=== PATIENT | female | born 1950 | race Caucasian/White ===

== ENCOUNTER → 2016-08-10 | Outpatient (CLI) | payer MEDICARE, BC ==
--- NOTE | 2016-09-14 10:54 | EM ---
DATE OF SERVICE: AGE: 66Y SEX: F INDICATIONS: EVENT MONITOR The patient was monitored between the period of July until September 08, 2016. The baseline rhythm appeared to be a sinus mechanism. The patient had multiple episodes of paroxysmal supraventricular tachycardia noted. Besides that and in terms of ventricular ectopy, the patient had multiple episodes of PVCs and couplets. Beside that, there is no evidence of any sinus pause or sinus arrest seen. CONCLUSION: 1. The patient was monitored for 3 weeks. 2. Sinus rhythm as a baseline mechanism. 3. Multiple episodes of supraventricular tachycardia noted.
== END | disposition home or self-care (01) ==
LOC: RADECHMAIN 12:57
PROVIDERS: ATTEND Family Medicine
DX: I49.3 Ventricular premature depolarization (principal); I47.1 Supraventricular tachycardia
CPT/HCPCS: 93270; 93271

== ENCOUNTER → 2016-09-12 | Outpatient (CLI) | payer MEDICARE, BC ==
--- NOTE | 2016-09-13 10:12 | ECHOF ---
Referral Reason:R00.2 Palpitations MEASUREMENTS -------- HEIGHT: 160.0 cm WEIGHT: 83.0 kg BP: RVIDd: 2.9 cm (< 3.3) IVSd: 1.1 cm (0.6 - 1.1) LVIDd: 3.8 cm (3.9 - 5.3) LVPWd: 1.1 cm (0.6 - 1.1) IVSs: 1.3 cm LVIDs: 3.3 cm LVPWs: 1.2 cm LA Diam: 3.0 cm (2.7 - 3.8) LAESV Index (A-L): 15.56 ml/m Ao Diam: 2.6 cm (2.0 - 3.7) AV Cusp: 1.9 cm (1.5 - 2.6) LA Diam: 3.0 cm (2.7 - 3.8) MV EXCURSION: 15.944 mm (> 18.000) MV EF SLOPE: 49 mm/s (70 - 150) EPSS: 0.7 cm MV E Tomas: 0.57 m/s MV DecT: 268 ms MV A Tomas: 0.76 m/s MV E/A Ratio: 0.76 RAP: 5.00 mmHg RVSP: 19.70 mmHg FINDINGS -------- Sinus rhythm. This was a technically good study. There is borderline concentric left ventricular hypertrophy. Overall left ventricular systolic function is low-normal with, an EF between 50 - 55 %. The right ventricle is normal in size. Normal LA size by volume 22+/-6 ml/m2. The right atrial size is normal. There is mild aortic valve sclerosis. There is no evidence of aortic regurgitation. Mild mitral annular calcification present. Mild mitral regurgitation is present. Mild tricuspid regurgitation present. There is no evidence of pulmonary hypertension. The right ventricular systolic pressure, as measured by Doppler, is 19.70mmHg. There is no pulmonic regurgitation present. The aortic root size is normal. There is no pericardial effusion. CONCLUSIONS -------- 1. There is borderline concentric left ventricular hypertrophy. 2. Overall left ventricular systolic function is low-normal with, an EF between 50 - 55 %. 3. There is mild aortic valve sclerosis. 4. Mild mitral annular calcification present. 5. Mild mitral regurgitation is present. 6. Mild tricuspid regurgitation present. 7. There is no evidence of pulmonary hypertension. 8. The right ventricular systolic pressure, as measured by Doppler, is 19.70mmHg. LICENSING ANALYST: Nelsy Mera RDCS
== END | disposition home or self-care (01) ==
LOC: RADECHMAIN 14:37
PROVIDERS: ATTEND Internal Medicine Cardiovascular Disease
DX: I07.1 Rheumatic tricuspid insufficiency (principal); I34.0 Nonrheumatic mitral (valve) insufficiency; I35.8 Other nonrheumatic aortic valve disorders
CPT/HCPCS: 93306

== ENCOUNTER → 2017-12-02 | Outpatient (CLI) | payer MEDICARE, BC ==
--- NOTE | 2017-12-02 15:31 | US ---
EXAMINATION TYPE: US carotid duplex BILAT DATE OF EXAM: 12/02/2017 COMPARISON: Carotid ultrasound February 10, 2013 CLINICAL HISTORY: R07.89 atypical chest pain. Intermittent neck and chest pain and bilateral arm weak ness x couple months EXAM MEASUREMENTS: RIGHT: Peak Systolic Velocity (PSV) cm/sec ----- Right CCA: 60.8 ----- Right ICA: 87.5 ----- Right ECA: 74.2 ICA/CCA ratio: 1.4 RIGHT: End Diastole cm/sec ----- Right CCA: 21.5 ----- Right ICA: 32.2 ----- Right ECA: 15.9 LEFT: Peak Systolic Velocity (PSV) cm/sec ----- Left CCA: 67.3 ----- Left ICA: 104.2 ----- Left ECA: 44.8 ICA/CCA ratio: 1.5 LEFT: End Diastole cm/sec ----- Left CCA: 21.6 ----- Left ICA: 43.8 ----- Left ECA: 10.4 VERTEBRALS (direction of flow): Right Vertebral: Antegrade Left Vertebral: Antegrade Rhythm: Normal Grayscale images show mild to moderate eccentric plaque just before left carotid bulb. Velocity measu rements and ratios remain within normal limits in visualized portion of both internal carotid arterie s. IMPRESSION: No hemodynamically significant stenosis is seen in either internal carotid artery. Criteria for Assigning % of Stenosis / Diameter reduction (Estimation based on the indirect measurements of the internal carotid artery velocities (ICA PSV). 1. Normal (no stenosis)=ICA PSV < 125 cm/s: ratio < 2.0: ICA EDV<40 cm/s. 2. Less than 50% stenosis=ICA PSV < 125 cm/s: ratio < 2.0: ICA EDV<40 cm/s. 3. 50 to 69% stenosis=ICA PSV of 125 to 230 cm/s: ration 2.0 ? 4.0: ICA EDV 40-100 cm/s. 4. Greater than 70% stenosis to near occlusion= ICA PSV > 230 cm/s: ratio > 4.0: ICA EDV > 100 cm/s. 5. Near occlusion= ICA PSV velocities may be low or undetectable: variable ratio and ICA EDV. 6. Total occlusion=unable to detect flow.
== END | disposition home or self-care (01) ==
LOC: RADUSWWP 14:49
PROVIDERS: ATTEND Family Medicine
DX: R07.89 Other chest pain (principal)
CPT/HCPCS: 93880

== ENCOUNTER → 2018-08-09 | Outpatient (CLI) | payer MEDICARE, BC ==
--- NOTE | 2018-08-09 15:46 | XR ---
Bilateral knees HISTORY: Chronic pain 3 views of both knees are submitted on a total of 7 images Crescentic ossific density medial to the left medial femoral condyle compatible with Merissa Stied a disease. Some joint space loss is present in the medial compartment of the right knee. Alignment an d bone mineralization are maintained. No sizable joint effusions evident. 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 Knee MRI may be of benefit.
== END | disposition home or self-care (01) ==
LOC: LABWHC1 09:16
PROVIDERS: ATTEND Family Medicine
DX: S83.412A Sprain of medial collateral ligament of left knee, initial encounter (principal); M17.11 Unilateral primary osteoarthritis, right knee

== ENCOUNTER → 2018-09-05 | Outpatient (CLI) | payer MEDICARE, BC ==
--- NOTE | 2018-09-05 14:03 | MR ---
EXAMINATION TYPE: MR knee LT wo con DATE OF EXAM: 09/05/2018 COMPARISON: Bilateral knee x-ray August 09, 2018 HISTORY: Left knee pain TECHNIQUE: Multiplanar, multisequence images of the knee is performed without IV contrast. FINDINGS: MEDIAL MENISCUS: Anterior horn is intact without tear. Globular increased signal posterior horn exten ds to inferior articular surface sagittal image 22. LATERAL MENISCUS: Posterior horn is intact without tear. There is triangular shaped increased signal anterior horn with irregular signal extending superiorly to distal femoral surface sagittal image 8. CRUCIATE LIGAMENTS: The anterior and posterior cruciate ligaments are intact and unremarkable. COLLATERAL LIGAMENTS: The medial collateral ligament and lateral collateral ligament complex are inta ct and unremarkable. EXTENSOR MECHANISM: Visualized quadriceps and patellar tendons are intact. EFFUSION: No significant suprapatellar joint effusion. POPLITEAL CYST: No popliteal/wilder cyst. TRICOMPARTMENT SPACES: There is mild to moderate tricompartment joint space loss is prominent patello femoral compartment. Mild tibial condylar spurring is present. 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 BONE MARROW SIGNAL: There are additional heterogeneous areas of T2 hyperintensity along posterior pat ellar pole more cranial seen axial image 14 with adjacent fissuring of cartilage. OTHER: No additional significant abnormality is appreciated. IMPRESSION: 1. Full-thickness tearing anterior horn of lateral meniscus. 2. Suspected full-thickness tear posterior horn of medial meniscus. 3. Moderate tricompartment degenerative changes most prominent patellofemoral compartment where there is fairly significant chondromalacia patella noted as detailed above.
== END ==
LOC: RADMRIMAIN 13:16
PROVIDERS: ATTEND Family Medicine
DX: S83.282A Other tear of lateral meniscus, current injury, left knee, initial encounter (principal); M17.12 Unilateral primary osteoarthritis, left knee; M22.42 Chondromalacia patellae, left knee

== ENCOUNTER → 2019-07-20 | Outpatient (CLI) | payer MEDICARE, BC ==
--- NOTE | 2019-07-20 16:39 | BD ---
EXAMINATION TYPE: Axial Bone Density DATE OF EXAM: 07/20/2019 COMPARISON: 09/09/2013 CLINICAL HISTORY: 69 YR OLD FEMALE.....ICD-10 CODE: Z78.0 POST MENOPAUSAL Height: 62.5 IN Weight: 196 LBS FRAX RISK QUESTIONS: Secondary Osteoporosis: no 3. Menopause before 45: PARTIAL HYST AGE 33 Current Tobacco Use: YES RISK FACTORS HISTORY OF: Active: YES Diet low in dairy products/other sources of calcium: YES Postmenopausal woman: PARTIAL HYST AGE 33. Take estrogen and/or progesterone medications: NOT NOW How long: TOOK FOR 10 YEARS MEDICATIONS: Thyroid Medications: YES Which medication: Levothyroxine How Lon YEARS Additional Medications: LEVOTHYROXINE, TOPORIL , METOPROLOL, EXAM MEASUREMENTS: Bone mineral densitometry was performed using the [email or web address] System. Bone mineral density as measured about the Lumbar spine is: ----- L1-L4(G/cm2): 0.935 T Score Values are as follows: ----- L2: -2.3 ----- L3: -2.4 ----- L4: -1.2 ----- L1-L4: -2.0 Bone mineral density has: Decreased -2.1% since study of: 09/09/2013 Bone mineral density about the R hip (g/cm2): 0.851 Bone mineral density about the L hip (g/cm2): 0.897 T Score values are as follows: -----R Neck: -1.3 -----L Neck: -1.0 -----R Total: -0.3 -----L Total: -0.4 Bone mineral density has: Decreased -7.7% since study of: 09/09/2013 IMPRESSION: Osteopenia (T Score between -2.5 and -1). There is slightly increased risk of fracture and the patient may be considered for treatment. Re-Screen 2-5 years. NOTE: T-SCORE=SD OF THE YOUNG ADULT MEAN.
--- NOTE | 2019-07-24 12:01 | MM ---
Reason for exam: screening (asymptomatic). Last mammogram was performed 5 years and 10 months ago. History: Patient is postmenopausal. Benign stereotactic core biopsy of the left breast, June 11, 2002. Took estrogen for 10 years beginning at age 43. Physical Findings: A clinical breast exam by your physician is recommended on an annual basis and results should be correlated with mammographic findings. MG 3D Screening Mammo W/Cad Bilateral CC and MLO view(s) were taken. Prior study comparison: September 09, 2013, bilateral digital screening mammo w/CAD. March 14, 2011, bilateral digital screening mammo w/CAD. There are scattered fibroglandular densities. There are benign appearing round calcifications bilaterally. Previous mammotome biopsy in the left breast. There is chronic nodularity bilaterally, left smaller near nipple, stable. There is no dominant lesion. Asymmetric breast tissue right anterior. ASSESSMENT: Benign, BI-RAD 2 RECOMMENDATION: Routine screening mammogram of both breasts in 1 year.
== END | disposition home or self-care (01) ==
LOC: RADMAMWWP 14:33
PROVIDERS: ATTEND Family Medicine
DX: Z12.31 Encounter for screening mammogram for malignant neoplasm of breast (principal); M85.80 Other specified disorders of bone density and structure, unspecified site; Z78.0 Asymptomatic menopausal state
CPT/HCPCS: 77063; 77067; 77080

== ENCOUNTER → 2023-05-24 | Outpatient (CLI) | payer MEDICARE, BC ==
--- NOTE | 2023-05-24 14:46 | MM ---
Reason for Exam: Screening (asymptomatic). Last mammogram was performed 3 year(s) and 10 month(s) ago. Patient History: Menarche at age 11. First Full-Term at age 19. Hysterectomy at age 33. Postmenopausal. Estrogen for 10 years from age 43 until age 53. 06/11/2002, Benign Stereotactic Core Biopsy on the left side. Risk Values: Elsie 5 year model risk: 1.9%. NCI Lifetime model risk: 4.3%. Prior Study Comparison: 03/14/2011 Bilateral Screening Mammogram, [facility]. 09/09/2013 Bilateral Screening Mammogram, [facility]. 07/20/2019 Bilateral Screening Mammogram, [facility]. Tissue Density: There are scattered fibroglandular densities. Findings: Analyzed By CAD. There is no suspicious group of microcalcifications or new suspicious mass in either breast. Benign-appearing calcifications within both breasts. Biopsy clip within left breast. Stable chronic nodularity within the right breast. Overall Assessment: Benign, BI-RAD 2 Management: Screening Mammogram of both breasts in 1 year. A clinical breast exam by your physician is recommended on an annual basis and results should be correlated with mammographic findings. Note on Elsie scores and lifetime risk: 1. A Elsie score greater than 3% is considered moderate risk. If this is the case, consider specialist referral to assess eligibility for a risk reducing agent. If overall lifetime risk for the development of breast cancer is 20% or higher, the patient may qualify for future screening with alternating mammogram and breast MRI. Electronically signed and approved by: Kun Recinos D.O.
== END | disposition home or self-care (01) ==
LOC: RADMAMWWP 13:06
PROVIDERS: ATTEND Family Medicine
DX: Z12.31 Encounter for screening mammogram for malignant neoplasm of breast (principal); Z78.0 Asymptomatic menopausal state
CPT/HCPCS: 77063; 77067

== ENCOUNTER → 2023-10-02 | Outpatient (CLI) | payer MEDICARE, BC ==
--- NOTE | 2023-10-02 17:27 | BD ---
EXAMINATION TYPE: Axial Bone Density DATE OF EXAM: 10/02/2023 CLINICAL HISTORY: 73 years old Female. ICD-10 CODE: M81.0 KNOWN OSTEOPOROSIS Height: 62.75" Weight: 181.9lbs FRAX RISK QUESTIONS: Alcohol (3 or more units per day): No Family History (Parent hip fracture): No Glucocorticoids (More than 3mos): No (Ex: prednisone, prednisolone, methylprednisolone, dexamethasone, and hydrocortisone). History of Fracture in Adulthood: No Secondary Osteoporosis: 1. Type 1 Diabetes: No 2. Hyperthyroidism: No 3. Menopause before 45: Yes 4. Malnutrition: No 5. Chronic liver disease: No Rheumatoid Arthritis: No Current Tobacco Use: No RISK FACTORS HISTORY OF: Hip Fracture (Right/Left): No Spine Fracture: No History of Wrist Fracture: No Surgery to Spine/Hip(right/left)/Wrist (right/left): No MEDICATIONS: Thyroid Medications: Yes Which medication: Synthroid How Lon years Osteoporosis Medications: No EXAM MEASUREMENTS: Bone mineral densitometry was performed using the [employer] System. Bone mineral density as measured about the Lumbar spine is: ----- L1-L4(G/cm2): 0.981 T Score Values are as follows: ----- L1: -2.6 ----- L2: -2.8 ----- L3: -1.6 ----- L4: -0.3 ----- L1-L4: -1.7 Z Score Values are as follows: ----- L1: -1.4 ----- L2: -1.7 ----- L3: -0.5 ----- L4: 0.9 ----- L1-L4: -0.5 Bone mineral density has: increased 4.9% since study of: 07/20/2019 Bone mineral density about the R hip (g/cm2): 0.926 Bone mineral density about the L hip (g/cm2): 1.019 T Score values are as follows: -----R Neck: -1.3 -----L Neck: -0.3 -----R Total: -0.6 -----L Total: 0.1 Z Score values are as follows: -----R Neck: 0.2 -----L Neck: 1.2 -----R Total: 0.6 -----L Total: 1.4 Bone mineral density has: increased 0.9% since study of: 07/20/2019 FRAX%s: The graph provided illustrates a 9.8% chance for a major osteoporotic fx and a 1.6% chance fo r the hips probability for fx in 10 years time. IMPRESSION: Osteopenia (T Score between -2.5 and -1). There is slightly increased risk of fracture and the patient may be considered for treatment. Re-Screen 2-5 years. NOTE: T-SCORE=SD OF THE YOUNG ADULT MEAN.
== END | disposition home or self-care (01) ==
LOC: RADBDWWP 11:19
PROVIDERS: ATTEND Family Medicine
DX: M81.0 Age-related osteoporosis without current pathological fracture (principal); M85.89 Other specified disorders of bone density and structure, multiple sites; Z78.0 Asymptomatic menopausal state
CPT/HCPCS: 77080

== ENCOUNTER → 2024-07-03 | Outpatient (CLI) | payer MEDICARE, BC ==
--- NOTE | 2024-07-08 08:26 | MM ---
Reason for Exam: Screening (asymptomatic). Last mammogram was performed 1 year(s) and 2 month(s) ago. Patient History: Menarche at age 11. First Full-Term at age 19. Hysterectomy at age 33. Postmenopausal. Estrogen for 10 years from age 43 until age 53. 06/11/2002, Benign Stereotactic Core Biopsy on the left side. Risk Values: Elsie 5 year model risk: 1.9%. NCI Lifetime model risk: 4.0%. Prior Study Comparison: 09/09/2013 Bilateral Screening Mammogram, [facility]. 07/20/2019 Bilateral Screening Mammogram, [facility]. 05/24/2023 Bilateral MG 3D screening mammo w/cad, [facility]. Tissue Density: The breasts are almost entirely fatty. Findings: Analyzed By CAD. Left breast biopsy clip. Right breast: There is no suspicious group of microcalcifications or new suspicious mass. Benign-appearing calcifications right breast. Left breast: There is no suspicious group of microcalcifications or new suspicious mass. Benign-appearing calcifications left breast. Overall Assessment: Negative, BI-RAD 1 Management: Screening Mammogram of both breasts in [address] [facility] will attempt to contact patient to return for supplemental views and ultrasound if indicated. Patient should continue monthly self-breast exams. A clinical breast exam by your physician is recommended on an annual basis. This exam should not preclude additional follow-up of suspicious palpable abnormalities. Note on Elsie scores and lifetime risk: 1. A Elsie score greater than 3% is considered moderate risk. If this is the case, consider specialist referral to assess eligibility for a risk reducing agent. 2. If overall lifetime risk for the development of breast cancer is 20% or higher, the patient may qualify for future screening with alternating mammogram and breast MRI. [facility], , 07/08/2024 8:23 AM. Electronically signed and approved by: Jose Terrell DO
== END | disposition home or self-care (01) ==
LOC: RADMAMWWP 11:05
PROVIDERS: ATTEND Family Medicine
DX: Z12.31 Encounter for screening mammogram for malignant neoplasm of breast (principal); Z78.0 Asymptomatic menopausal state; R92.313 Mammographic fatty tissue density, bilateral breasts; Z98.82 Breast implant status
CPT/HCPCS: 77063; 77067